=== PATIENT | male | born 1960 | race Two or more races ===

== ENCOUNTER 2022-09-10 16:15 | Emergency (ER) | payer MEDICAID, MEDICARE ==
[~2022-09-10] VITALS: Ht 165.1 cm; Wt 84.5 kg
[2022-09-10 17:52] LABS: Urine WBC None Seen /hpf (0 - 3)
[2022-09-10 18:01] LABS: Basophils # (auto) 0.1 10 ^3/uL (0-0.2); Basophils % (auto) 1.5 % (0.0-2.0); Eosinophils # (auto) 0 10 ^3/uL (0-0.8); Eosinophils % (auto) 0.5 % (0.0-7.0); Hematocrit 43.9 % (41.0-53.0); Hemoglobin 15.1 g/dL (13.5-17.5); Lymphocytes # (auto) 1.4 10 ^3/uL (0.4-5.4); Lymphocytes % (auto) 19.8 % (10.0-50.0); Mean Corpuscular Hemoglobin 28.7 pg (28.0-32.0); Mean Corpuscular Hgb Conc. 34.5 g/dL (32.0-36.0); Mean Corpuscular Volume 83.2 fL (80.0-100.0); Monocytes # (auto) 0.5 10 ^3/uL (0-1.3); Monocytes % (auto) 7.7 % (0.0-12.0); Neutrophils # (auto) 4.9 10 ^3/uL (1.6-8.6); Neutrophils % (auto) 70.5 % (37.0-80.0); Nucleated Red Blood Cells % 0.1 %; Red Blood Cells 5.28 10^6/uL (4.5-5.90); Red Cell Distribution Width 13.6 % (11.8-14.3)
[2022-09-10 18:05] LABS: Urine Bacteria NONE SEEN /hpf (None Seen); Urine Blood Negative /uL (Negative); Urine Specific Gravity 1.002 (1.001-1.035)
[2022-09-10 18:17] LABS: Albumin 4.3 g/dL (3.4-5.0); Calcium 9.1 mg/dL (8.5-10.1); Potassium 4.1 mmol/L (3.5-5.1)
[2022-09-10 18:19] LABS: BUN/Creatinine Ratio 12.3
[2022-09-10 18:21] LABS: Bilirubin, Total 0.4 mg/dL (0.2-1.0)
[2022-09-11] MEDS ORDERED: SODIUM CHLORIDE 0.9% 1,000 ML IV ONE (01:00)
[2022-09-11] MEDS ORDERED: SODIUM CHLORIDE 0.9% 500 ML IV ONE (01:00)
[2022-09-11 02:49] VITALS: BP 134/60
== END 2022-09-11 02:50 | disposition home or self-care (01) ==
LOC: ER 16:15
DX: R79.9 Abnormal finding of blood chemistry, unspecified (principal); E87.8 Other disorders of electrolyte and fluid balance, not elsewhere classified; F20.9 Schizophrenia, unspecified; F31.9 Bipolar disorder, unspecified; Z98.890 Other specified postprocedural states
CPT/HCPCS: 36415; 80053; 81001; 85025; 96360; 99285; J7030; J7040

== ENCOUNTER 2024-07-22 02:49 | Inpatient (IN) | payer OTHER, MEDICAID ==
[2024-07-22] VITALS (12 sets, daily range): BP systolic 112–153; BP diastolic 62–89; PULSE 54–68; RESP 18–19; TEMP 98.2; O2SAT 96–100
[~2024-07-22] VITALS: Ht 167.6 cm; Wt 72.0 kg
[2024-07-22] MEDS: MIDAZOLAM DRIP 50 mg/50mL 50 ML IV SCH (03:00)
[2024-07-22 03:22] LABS: Urine Bacteria None Seen /hpf (None Seen)
[2024-07-22 03:41] LABS: Urine Blood Negative /uL (Negative); Urine Clarity Clear (Clear); Urine Color Colorless (Yellow); Urine Protein, UAD Negative (Negative); Urine Specific Gravity 1.005 (1.001-1.035); Urine Urobilinogen Normal (Negative); Urine WBC 2 /hpf (0 - 3)
[2024-07-22 03:44] LABS: Amphetamine Screen, Urine Neg (NEGATIVE); Barbiturate Scree,Urine Neg (NEGATIVE); Benzodiazephine Screen, Urine Neg (NEGATIVE); Cannabinoid Screen, Urine Neg (NEGATIVE); Cocaine Screen, Urine Neg (NEGATIVE); Opiate Scree,Urine Neg (NEGATIVE); Phencyclidine Screen, Urine Neg (NEGATIVE)
[2024-07-22 04:21] LABS: Basophils # (auto) 0.1 10 ^3/uL (0-0.2); Basophils % (auto) 0.7 % (0.0-2.0); Eosinophils # (auto) 0.1 10 ^3/uL (0-0.8); Eosinophils % (auto) 1.3 % (0.0-7.0); Hematocrit 38.8 % (41.0-53.0); Hemoglobin 13.7 g/dL (13.5-17.5); Lymphocytes # (auto) 0.8 10 ^3/uL (0.4-5.4); Lymphocytes % (auto) 9.7 % (10.0-50.0); Mean Corpuscular Hemoglobin 29.8 pg (28.0-32.0); Mean Corpuscular Hgb Conc. 35.4 g/dL (32.0-36.0); Mean Corpuscular Volume 84.3 fL (80.0-100.0); Monocytes # (auto) 0.7 10 ^3/uL (0-1.3); Monocytes % (auto) 8.6 % (0.0-12.0); Neutrophils # (auto) 6.8 10 ^3/uL (1.6-8.6); Neutrophils % (auto) 79.7 % (37.0-80.0); Platelet Count (auto) 210 10^3/uL (140-450); Red Cell Distribution Width 13.1 % (11.8-14.3); White Blood Cell 8.5 10^3/uL (4.4-10.8)
[2024-07-22 04:36] LABS: Alanine Aminotransferase 41 U/L (7-40); Albumin 3.5 g/dL (3.2-4.8); Alkaline Phosphatase 48 U/L (46-116); Anion Gap 3 (5-15); Aspartate Aminotransferase 66 U/L (13-40); BUN/Creatinine Ratio 21.7 (10.0-20.0); Bilirubin, Total 0.9 mg/dL (0.2-1.0); Blood Urea Nitrogen 15 mg/dL (9-23); Calcium 7.8 mg/dL (8.7-10.4); Carbon Dioxide 23 mmol/L (20-31); Chloride 96 mmol/L (98-107); Glucose 111 mg/dL (74-106); Lipase 105 U/L (12-53); Potassium 2.9 mmol/L (3.5-5.1); Sodium 122 mmol/L (136-145); Total Protein 5.3 g/dL (5.7-8.2)
[2024-07-22 04:39] LABS: Salicylate < 3.0 mg/dL (-30)
[2024-07-22 04:49] LABS: Blood Alcohol < 3.0 mg/dL (<10)
[2024-07-22] MEDS: NOREPINEPHRINE 8 MG/250ML KIT 250 ML IV SCH (05:30)
[2024-07-22] MEDS: SODIUM CHLORIDE 0.9% 1,000 ML IV ONE ×2 (06:30→08:17)
[2024-07-22] MEDS: CEFEPIME 2GM/50ML NS 50 ML IV ONE (06:42)
[2024-07-22] MEDS: VANCOMYCIN 1GM/200ML 200 ML IV ONE ×2 (06:42→12:29)
[2024-07-22] MEDS ORDERED: POTASSIUM CHL 20 Meq TABLET PO ONE (07:00)
[2024-07-22] MEDS: POTASSIUM CHL 20MEQ/100ML 100 ML IV ONE ×2 (07:34→10:43)
[2024-07-22 07:36] LABS: Base Excess -2.5 mmol/L (-2.0-3.0)
[2024-07-22] MEDS ORDERED: VANCOMYCIN PER PHARMACY 0 MG IV SCH (11:30)
[2024-07-22] MEDS ORDERED: ONDANSETRON HCL 4 MG/2 ML VIAL IV PRN (11:30)
[2024-07-22] MEDS ORDERED: NITROGLYCERIN 0.4 MG SL TAB SL PRN (11:30)
[2024-07-22] MEDS: PANTOPRAZOLE 40 MG/10 ML VIAL INJ IV ONE (11:50)
[2024-07-22] MEDS: ENOXAPARIN SOD 40 MG/0.4 ML SYRINGE SC SCH (12:30)
[2024-07-22 13:38] LABS: Magnesium 2.2 mg/dL (1.6-2.6)
[2024-07-22 13:39] LABS: Phosphorus 4.4 mg/dL (2.4-5.1)
[2024-07-22] MEDS: CEFEPIME 2GM/50ML NS 50 ML IV SCH (14:14)
[2024-07-22] MEDS: SODIUM CHLORIDE 0.9% 1,000 ML IV SCH (16:14)
[2024-07-22] MEDS: POTASSIUM CHL 20MEQ/100ML 100 ML IV SCH (16:17)
[2024-07-22 16:50] LABS: Triglycerides 88 mg/dL (< 150)
[2024-07-22 16:51] LABS: LDL Cholesterol 40 mg/dL (< 100)
[2024-07-22 16:52] LABS: Cholesterol 101 mg/dL (< 200); HDL Cholesterol 48 mg/dL (40-59)
[2024-07-22] MEDS: NOREPINEPHRINE 8 MG/250ML KIT 250 ML IV ONE (18:57)
[2024-07-22] MEDS: ROCURONIUM 10MG/ML 10ML VIAL IV ONE (18:57)
[2024-07-22] MEDS: ETOMIDATE (2MG/ML) 20ML VIAL IV ONE (18:57)
[2024-07-22] MEDS: IOHEXOL 300 MG/ML 100ML BOTTLE IJ ONE (18:58)
[2024-07-22] MEDS: MIDAZOLAM DRIP 50 mg/50mL 50 ML IV ONE (18:58)
[2024-07-23] VITALS (14 sets, daily range): BP systolic 99–181; BP diastolic 59–98; PULSE 63–97; RESP 16–23; O2SAT 96–100
[2024-07-23] MEDS: VANCOMYCIN 1GM/200ML 200 ML IV SCH (00:05)
[2024-07-23] MEDS: PROPOFOL 100 ML IV SCH (02:12)
[2024-07-23] MEDS: PROPOFOL 100 ML IV ONE (02:12)
[2024-07-23 03:45] LABS: Basophils # (auto) 0 10 ^3/uL (0-0.2); Basophils % (auto) 0.3 % (0.0-2.0); Eosinophils # (auto) 0.1 10 ^3/uL (0-0.8); Eosinophils % (auto) 1.2 % (0.0-7.0); Hemoglobin 13.8 g/dL (13.5-17.5); Lymphocytes # (auto) 0.7 10 ^3/uL (0.4-5.4); Lymphocytes % (auto) 7.6 % (10.0-50.0); Mean Corpuscular Hemoglobin 29.9 pg (28.0-32.0); Mean Corpuscular Hgb Conc. 35.3 g/dL (32.0-36.0); Mean Corpuscular Volume 84.6 fL (80.0-100.0); Monocytes # (auto) 0.9 10 ^3/uL (0-1.3); Monocytes % (auto) 9.1 % (0.0-12.0); Neutrophils # (auto) 7.8 10 ^3/uL (1.6-8.6); Neutrophils % (auto) 81.8 % (37.0-80.0); Platelet Count (auto) 197 10^3/uL (140-450); Red Cell Distribution Width 13.4 % (11.8-14.3); White Blood Cell 9.5 10^3/uL (4.4-10.8)
[2024-07-23 03:58] LABS: Alanine Aminotransferase 29 U/L (7-40); Albumin 3.4 g/dL (3.2-4.8); Alkaline Phosphatase 46 U/L (46-116); Anion Gap 4 (5-15); Aspartate Aminotransferase 37 U/L (13-40); BUN/Creatinine Ratio 9.5 (10.0-20.0); Blood Urea Nitrogen 7 mg/dL (9-23); Calcium 8.1 mg/dL (8.7-10.4); Carbon Dioxide 23 mmol/L (20-31); Chloride 110 mmol/L (98-107); Glucose 104 mg/dL (74-106); Potassium 3.6 mmol/L (3.5-5.1); Sodium 137 mmol/L (136-145)
[2024-07-23 03:59] LABS: Total Protein 5.3 g/dL (5.7-8.2)
[2024-07-23 04:13] LABS: Bilirubin, Total 0.6 mg/dL (0.2-1.0)
[2024-07-23 07:30] LABS: Base Excess -2.5 mmol/L (-2.0-3.0)
[2024-07-23] MEDS: PANTOPRAZOLE 40 MG/10 ML VIAL INJ IV SCH (10:25)
[2024-07-23] MEDS: POTASSIUM CHL 20MEQ/100ML 100 ML IV SCH (10:26)
[2024-07-23] MEDS ORDERED: ACETAMINOPHEN 650 MG RECT SUPP PR PRN (21:15)
[2024-07-23] MEDS: ACETAMINOPHEN IV 1000 MG/100ML (10MG/ML) IV ONE (21:30)
[2024-07-24] VITALS (14 sets, daily range): BP systolic 113–154; BP diastolic 57–85; PULSE 50–98; RESP 18–21; O2SAT 95–100
[2024-07-24 05:58] LABS: Basophils # (auto) 0.1 10 ^3/uL (0-0.2); Basophils % (auto) 0.6 % (0.0-2.0); Eosinophils # (auto) 0.1 10 ^3/uL (0-0.8); Hematocrit 38.8 % (41.0-53.0); Hemoglobin 13.7 g/dL (13.5-17.5); Lymphocytes # (auto) 0.8 10 ^3/uL (0.4-5.4); Lymphocytes % (auto) 7.9 % (10.0-50.0); Mean Corpuscular Hemoglobin 30.1 pg (28.0-32.0); Mean Corpuscular Hgb Conc. 35.2 g/dL (32.0-36.0); Mean Corpuscular Volume 85.4 fL (80.0-100.0); Monocytes # (auto) 0.9 10 ^3/uL (0-1.3); Monocytes % (auto) 9.6 % (0.0-12.0); Neutrophils % (auto) 80.9 % (37.0-80.0); Platelet Count (auto) 176 10^3/uL (140-450); Red Blood Cells 4.54 10^6/uL (4.5-5.90); Red Cell Distribution Width 13.5 % (11.8-14.3); White Blood Cell 9.9 10^3/uL (4.4-10.8)
[2024-07-24 08:09] LABS: Base Excess -2.3 mmol/L (-2.0-3.0)
[2024-07-24] MEDS: fentaNYL Drip 2500mCg/250mlNS 250 ML IV SCH (08:28)
[2024-07-24] MEDS: MIDAZOLAM DRIP 50 mg/50mL 50 ML IV SCH (09:10)
[2024-07-24] MEDS: ACETAMINOPHEN 650 mg PER 20.3 mL UD GT PRN (09:26)
[2024-07-24] MEDS: VANCOMYCIN 1GM/200ML 200 ML IV SCH (11:09)
[2024-07-24 13:22] LABS: Base Excess -5.2 mmol/L (-2.0-3.0)
[2024-07-25] VITALS (9 sets, daily range): BP systolic 116–209; BP diastolic 55–92; PULSE 51–103; RESP 15–19; O2SAT 30–100
[2024-07-25 04:29] LABS: Basophils # (auto) 0.1 10 ^3/uL (0-0.2); Basophils % (auto) 0.9 % (0.0-2.0); Eosinophils # (auto) 0.2 10 ^3/uL (0-0.8); Hematocrit 36.5 % (41.0-53.0); Hemoglobin 12.6 g/dL (13.5-17.5); Lymphocytes # (auto) 1.2 10 ^3/uL (0.4-5.4); Lymphocytes % (auto) 15.6 % (10.0-50.0); Mean Corpuscular Hemoglobin 29.5 pg (28.0-32.0); Mean Corpuscular Hgb Conc. 34.5 g/dL (32.0-36.0); Mean Corpuscular Volume 85.5 fL (80.0-100.0); Monocytes # (auto) 0.8 10 ^3/uL (0-1.3); Monocytes % (auto) 10.5 % (0.0-12.0); Neutrophils # (auto) 5.5 10 ^3/uL (1.6-8.6); Platelet Count (auto) 181 10^3/uL (140-450); Red Blood Cells 4.27 10^6/uL (4.5-5.90); Red Cell Distribution Width 13.3 % (11.8-14.3); White Blood Cell 7.8 10^3/uL (4.4-10.8)
[2024-07-25 07:49] LABS: Alanine Aminotransferase 20 U/L (7-40); Albumin 3.3 g/dL (3.2-4.8); Alkaline Phosphatase 48 U/L (46-116); Anion Gap 11 (5-15); Aspartate Aminotransferase 27 U/L (13-40); BUN/Creatinine Ratio 12.7 (10.0-20.0); Bilirubin, Total 0.4 mg/dL (0.2-1.0); Blood Urea Nitrogen 8 mg/dL (9-23); Calcium 8.2 mg/dL (8.7-10.4); Carbon Dioxide 20 mmol/L (20-31); Chloride 112 mmol/L (98-107); Glucose 67 mg/dL (74-106); Potassium 3.1 mmol/L (3.5-5.1); Sodium 143 mmol/L (136-145); Total Protein 5.2 g/dL (5.7-8.2)
[2024-07-25] MEDS: DEXTROSE 50% SYRINGE 50 ML IV ONE (08:06)
[2024-07-25] MEDS: ACCU-CHEK COMFORT CURVE STRIP VI ONE ×2 (08:06→08:10)
[2024-07-25] MEDS: DEXTROSE (50%) 50ML SYRG IV ONE (08:08)
[2024-07-25] MEDS: MORPHINE SULFATE INJ 2 MG/ml SYRG IV PRN (13:19)
[2024-07-25] MEDS: hydrALAZINE HCL 20 MG/ML VL IV PRN (15:17)
[2024-07-25] MEDS: POTASSIUM CHLORIDE 20 MEQ, LIDOCAINE 1% (LOCAL ANESTH.) 2 ML in SODIUM CHL 0.9% 100 ML IV ONE (22:15)
[2024-07-25] MEDS: LABETALOL HCL 20 MG/4 ML VL IV PRN (22:38)
[2024-07-26 03:38] LABS: Basophils # (auto) 0.1 10 ^3/uL (0-0.2); Eosinophils # (auto) 0.1 10 ^3/uL (0-0.8); Eosinophils % (auto) 0.9 % (0.0-7.0); Hematocrit 42.6 % (41.0-53.0); Hemoglobin 14.8 g/dL (13.5-17.5); Lymphocytes # (auto) 1.2 10 ^3/uL (0.4-5.4); Lymphocytes % (auto) 12.5 % (10.0-50.0); Mean Corpuscular Hemoglobin 29.1 pg (28.0-32.0); Mean Corpuscular Hgb Conc. 34.7 g/dL (32.0-36.0); Mean Corpuscular Volume 83.9 fL (80.0-100.0); Monocytes % (auto) 11.1 % (0.0-12.0); Neutrophils # (auto) 6.9 10 ^3/uL (1.6-8.6); Neutrophils % (auto) 74.5 % (37.0-80.0); Platelet Count (auto) 258 10^3/uL (140-450); Red Blood Cells 5.08 10^6/uL (4.5-5.90); Red Cell Distribution Width 13.6 % (11.8-14.3); White Blood Cell 9.3 10^3/uL (4.4-10.8)
[2024-07-26 09:00] VITALS: PULSE 80; RESP 15; O2SAT 15
[2024-07-26 10:18] LABS: Chloride 105 mmol/L (98-107); Potassium 3.5 mmol/L (3.5-5.1)
[2024-07-26 10:19] LABS: Anion Gap 13 (5-15); Carbon Dioxide 24 mmol/L (20-31); Sodium 142 mmol/L (136-145)
[2024-07-26 10:20] LABS: Calcium 9.4 mg/dL (8.7-10.4)
[2024-07-26 10:24] LABS: Glucose 94 mg/dL (74-106)
[2024-07-26 10:25] LABS: BUN/Creatinine Ratio 7.4 (10.0-20.0); Blood Urea Nitrogen 5 mg/dL (9-23)
[2024-07-26 13:30] VITALS: BP 139/91; PULSE 80; RESP 18; TEMP 99.6; O2SAT 98
[2024-07-26 17:00] VITALS: BP 161/94; PULSE 89; RESP 18; TEMP 98.1; O2SAT 98
[2024-07-26 19:30] VITALS: PULSE 87; RESP 18; O2SAT 98
[2024-07-26 21:00] VITALS: BP 171/98; PULSE 85; RESP 22; TEMP 98.6; O2SAT 98
[2024-07-27] VITALS (7 sets, daily range): BP systolic 150–184; BP diastolic 72–97; PULSE 75–91; RESP 19–20; TEMP 97.6–98.7; O2SAT 93–98
[2024-07-27 06:38] LABS: Basophils # (auto) 0.1 10 ^3/uL (0-0.2); Basophils % (auto) 0.8 % (0.0-2.0); Eosinophils # (auto) 0.1 10 ^3/uL (0-0.8); Hematocrit 40.5 % (41.0-53.0); Hemoglobin 14.5 g/dL (13.5-17.5); Lymphocytes % (auto) 11.8 % (10.0-50.0); Mean Corpuscular Hemoglobin 30.1 pg (28.0-32.0); Mean Corpuscular Hgb Conc. 35.8 g/dL (32.0-36.0); Monocytes # (auto) 0.9 10 ^3/uL (0-1.3); Monocytes % (auto) 11.1 % (0.0-12.0); Neutrophils # (auto) 6.4 10 ^3/uL (1.6-8.6); Neutrophils % (auto) 75.3 % (37.0-80.0); Nucleated Red Blood Cells % 0.1 %; Platelet Count (auto) 285 10^3/uL (140-450); Red Blood Cells 4.82 10^6/uL (4.5-5.90); Red Cell Distribution Width 13.3 % (11.8-14.3); White Blood Cell 8.5 10^3/uL (4.4-10.8)
[2024-07-27] MEDS ORDERED: LOSA-534 PO (19:51)
[2024-07-27] MEDS ORDERED: BENZ2TAB50 PO (19:51)
[2024-07-27] MEDS ORDERED: RISP4TAB53 PO (19:51)
[2024-07-27] MEDS ORDERED: OMEP20TA PO (19:51)
[2024-07-27] MEDS ORDERED: METO25TA5 PO (19:51)
[2024-07-27] MEDS ORDERED: OXCA600T3 PO (19:51)
[2024-07-27] MEDS ORDERED: SERT-160 PO (19:51)
[2024-07-27] MEDS: METOPROLOL TARTRATE 25 MG TAB PO SCH (21:38)
[2024-07-28] VITALS (8 sets, daily range): BP systolic 154–170; BP diastolic 92–96; PULSE 72–89; RESP 17–19; TEMP 97.7–101.1; O2SAT 94–100
[2024-07-28] MEDS: hydrALAZINE HCL 20 MG/ML VL IV ONE (03:10)
[2024-07-28 06:19] LABS: Chloride 113 mmol/L (98-107); Potassium 2.7 mmol/L (3.5-5.1)
[2024-07-28 06:20] LABS: Anion Gap 11 (5-15); Carbon Dioxide 24 mmol/L (20-31)
[2024-07-28 06:21] LABS: Calcium 9.4 mg/dL (8.7-10.4)
[2024-07-28 06:26] LABS: BUN/Creatinine Ratio 19.1 (10.0-20.0); Blood Urea Nitrogen 13 mg/dL (9-23); Glucose 127 mg/dL (74-106)
[2024-07-28 06:44] LABS: Sodium 148 mmol/L (136-145)
[2024-07-28] MEDS: POTASSIUM EFFERVESENT TAB 25 MEQ PO ONE (13:55)
[2024-07-28] MEDS: SOD CHL 0.9%/ KCL 40MEQ 1,000 ML IV ONE (14:33)
[2024-07-29 05:00] VITALS: BP 156/89; PULSE 67; RESP 19; TEMP 98.4; O2SAT 96
[2024-07-29 07:22] LABS: Anion Gap 9 (5-15); Calcium 9.4 mg/dL (8.7-10.4); Carbon Dioxide 26 mmol/L (20-31); Chloride 114 mmol/L (98-107); Sodium 149 mmol/L (136-145)
[2024-07-29 07:28] LABS: BUN/Creatinine Ratio 19.4 (10.0-20.0); Blood Urea Nitrogen 13 mg/dL (9-23); Glucose 123 mg/dL (74-106); Magnesium 2.4 mg/dL (1.6-2.6)
[2024-07-29 08:00] VITALS: PULSE 88; RESP 19; O2SAT 97
[2024-07-29] MEDS: POTASSIUM CHLORIDE 40 MEQ in SOD CHL 0.45% 1,000 ML IV SCH (12:30)
[2024-07-29] MEDS ORDERED: SOD CHL 0.9%/ KCL 40MEQ 1,000 ML IV SCH (12:30)
[2024-07-29 17:00] VITALS: BP 150/82; PULSE 72; RESP 20; TEMP 98.1; O2SAT 96
[2024-07-29 20:00] VITALS: PULSE 88
[2024-07-29 21:00] VITALS: BP 162/96; PULSE 78; RESP 20; TEMP 98; O2SAT 98
[2024-07-30] VITALS (8 sets, daily range): BP systolic 148–161; BP diastolic 88–96; PULSE 59–80; RESP 18–20; TEMP 97.4–99.2; O2SAT 90–99
[2024-07-30 07:23] LABS: Chloride 106 mmol/L (98-107); Potassium 2.9 mmol/L (3.5-5.1); Sodium 141 mmol/L (136-145)
[2024-07-30 07:24] LABS: Anion Gap 8 (5-15); Calcium 9.1 mg/dL (8.7-10.4); Carbon Dioxide 27 mmol/L (20-31)
[2024-07-30 07:29] LABS: BUN/Creatinine Ratio 18.8 (10.0-20.0); Blood Urea Nitrogen 12 mg/dL (9-23); Glucose 114 mg/dL (74-106)
[2024-07-30] MEDS ORDERED: LORazepam 2MG/ML-1ML VIAL IM PRN (14:00)
[2024-07-30] MEDS: LORazepam 2MG/ML-1ML VIAL IV PRN (15:46)
[2024-07-31] VITALS (11 sets, daily range): BP systolic 133–193; BP diastolic 67–109; PULSE 60–77; RESP 16–20; TEMP 97.7–98.6; O2SAT 94–98
[2024-07-31] MEDS: cloNIDine HCL 0.1 MG TAB PO PRN (14:32)
[2024-07-31] MEDS: METOPROLOL TARTRATE 50 MG TAB PO SCH (21:26)
[2024-08-01] VITALS (8 sets, daily range): BP systolic 150–184; BP diastolic 69–103; PULSE 60–87; RESP 16–19; TEMP 98–98.5; O2SAT 96–98
[2024-08-01] MEDS: hydrALAZINE HCL 20 MG/ML VL IV PRN (05:29)
[2024-08-01 14:22] LABS: Chloride 105 mmol/L (98-107); Potassium 3.6 mmol/L (3.5-5.1); Sodium 137 mmol/L (136-145)
[2024-08-01 14:23] LABS: Anion Gap 8 (5-15); Calcium 9.3 mg/dL (8.7-10.4); Carbon Dioxide 24 mmol/L (20-31)
[2024-08-01 14:28] LABS: BUN/Creatinine Ratio 13.2 (10.0-20.0); Blood Urea Nitrogen 10 mg/dL (9-23); Glucose 150 mg/dL (74-106)
[2024-08-02 01:00] VITALS: BP 142/92; PULSE 63; TEMP 98.9; O2SAT 97
[2024-08-02 04:00] VITALS: BP 146/96; PULSE 70; RESP 19; TEMP 98; O2SAT 97
[2024-08-02 08:00] VITALS: PULSE 72
[2024-08-02 09:00] VITALS: BP 143/94; PULSE 80; RESP 16; TEMP 97.9; O2SAT 97
[2024-08-02] MEDS ORDERED: CEFD300C2 PO (12:47)
[2024-08-02 13:00] VITALS: BP 149/89; PULSE 69; RESP 18; TEMP 98.1; O2SAT 98
[2024-08-02] MEDS ORDERED: SERT50TA PO (13:29)
[2024-08-02] MEDS ORDERED: RISP2TAB28 PO (13:29)
[2024-08-02 13:56] VITALS: BP 143/94; PULSE 68; TEMP 36.7
== END 2024-08-02 15:20 | disposition home health service (06) | DRG 917 ==
LOC: EDBD 02:49 → ER 02:49 → EDUNIT# 02:49 → TELE 11:34 → TELE-WESTW 07-26 13:14
PROVIDERS: ADMIT Internal Medicine; ATTEND Nurse Practitioner Acute Care
PROC: 5A1945Z Respiratory Ventilation, 24-96 Consecutive Hours (ICD-10-PCS; principal; 2024-07-22)
PROC: 06HY33Z Insertion of Infusion Device into Lower Vein, Percutaneous Approach (ICD-10-PCS; 2024-07-22)
PROC: 0BH17EZ Insertion of Endotracheal Airway into Trachea, Via Natural or Artificial Opening (ICD-10-PCS; 2024-07-22)
DX: T46.5X1A Poisoning by other antihypertensive drugs, accidental (unintentional), initial encounter (principal); A41.9 Sepsis, unspecified organism; G92.8 Other toxic encephalopathy; J15.69 Pneumonia due to other Gram-negative bacteria; I50.41 Acute combined systolic (congestive) and diastolic (congestive) heart failure; J96.01 Acute respiratory failure with hypoxia; J15.9 Unspecified bacterial pneumonia; E87.1 Hypo-osmolality and hyponatremia; G93.1 Anoxic brain damage, not elsewhere classified; N17.9 Acute kidney failure, unspecified; E87.6 Hypokalemia; I11.0 Hypertensive heart disease with heart failure; F20.9 Schizophrenia, unspecified; F31.9 Bipolar disorder, unspecified; F17.200 Nicotine dependence, unspecified, uncomplicated; R74.01 Elevation of levels of liver transaminase levels; I35.0 Nonrheumatic aortic (valve) stenosis; K21.9 Gastro-esophageal reflux disease without esophagitis; I25.10 Atherosclerotic heart disease of native coronary artery without angina pectoris; E16.2 Hypoglycemia, unspecified; E66.01 Morbid (severe) obesity due to excess calories; Z95.2 Presence of prosthetic heart valve; Z68.25 Body mass index [BMI] 25.0-25.9, adult; Z95.1 Presence of aortocoronary bypass graft; Y92.89 Other specified places as the place of occurrence of the external cause; Z82.49 Family history of ischemic heart disease and other diseases of the circulatory system; Z83.3 Family history of diabetes mellitus
CPT/HCPCS: 31500; 36415; 36556; 36600; 70450; 71045; 71260; 72125; 74177; 80048; 80053; 80061; 80202; 80307; 80320; 80329; 81001; 82565; 82805; 82962; 83036; 83605; 83690; 83735; 83880; 84100; 84443; 84484; 85025; 87070; 87205; 92610; 93005; 93306; 93886; 94002; 94003; 95819; 96361; 96365; 96368; 97110; 97116; 97163; 97530; 99291; 99292; G0378; J0131; J0692; J2001; J2405; J2470; J2704; J3480; J7060